=== PATIENT | female | born 1945 | race African-American/Black ===

== ENCOUNTER 2018-09-11 21:57 | Inpatient (IN) | payer OTHER ==
[~2018-09-11] VITALS: Ht 157.5 cm; Wt 39.5 kg
[~2018-09-11 21:57] MED LIST: ACCUNEB SO1.25 MG/1; ACETAMINOPHEN325 M1 PO; ADULT LOW DOSE81 MG PO; APAP500 PO; ARTIFICIAL TEAR15 M1 OPHTHALMIC; ASPIR 8181 MG PO; ATROPINE 1% EYE D11 SUBLING; ATROPINE SUBLING; BISACODYL SUPP10 MG RECTAL; CARVEDILOL12.5 MG PO; CATAPRES0.1 MG PO; COLACE100 MG PO; CRANBERRY450 M1 PO; CYMBALTA20 MG PO; CYMBALTA30 MG PO; FAMOTIDINE10 MG/1 ML PO; FLONASE 0.05%50 MCG NASAL; GERI-LANTA LIQ355 ML PO; GLUCOSE4 GM PO; LANOXIN 0.120.125 M1 PO; LEVEMIR SUBQ; LIORESAL 10 MG10 MG PO; LIPITOR 20 MG T20 M1 PO; LIPITOR10 MG PO; LISINOPRIL10 MG PO; LISINOPRIL20 MG PO; LO-DOSE ASPIRIN81 M1 PO; MAGNESIUM OXID400 MG PO; MOM PO; NORVASC10 MG PO; NORVASC5 MG PO; NOVOLOG100 UNIT/1 SUBQ; ONE DAILY1 EACH PO; PATADAY2.5 ML OPHTHALMIC; PLAVIX 300 MG300 M1 PO; PLAVIX 75 MG TA75 M1 PO; POTASSIUM20 PO; SENNA8.6 MG PO; SINGULAIR 10 MG10 M1 PO; SYSTANE 0.3-0.1 EACH OPHTHALMIC; UNICOMPLEX M TA1 TA1 PO; VERAMYST10 GM NS; VITAMIN D1000 UNI1 PO; VITAMINC500 PO; ZYRTEC-D TABLE1 EAC1 PO; ZYRTEC10 MG PO; [UNRECOGNIZED DRUG - OTHER] SUBLING
[2018-09-11 21:59] VITALS: BP 150/85
--- NOTE | 2018-09-11 22:56 | NUR ---
multiple calls placed to [facility], no answer, per request of Dr Castellon, [place] police will go to the facility to talk with nurse
[2018-09-11 23:57] LABS: CALCIUM 9.8 mg/dL (8.5-10.1); CREATININE 0.9 mg/dL (0.6-1.0); POTASSIUM 5.1 mmol/L (3.5-5.1)
[2018-09-12 03:38] LABS: BASOPHILS 0.7 % (0.0-2.0); HEMATOCRIT 28.8 % (37.0-47.0); HEMOGLOBIN 9.4 gm/dL (12.0-15.0); LYMPHOCYTES 17.1 % (24.0-44.0); MCH 24.6 pg (26.0-34.0); MCHC 32.6 g/dL (28.0-37.0); MCV 75.6 fL (80.0-100.0); PLATELET COUNT 275 thou/uL (150-400); POLYS 76.2 % (36.0-66.0); RDW 17.4 % (10.5-14.5); WBC 11.8 thou/uL (4.0-11.0)
[2018-09-12 04:56] VITALS: BP 128/78
[2018-09-12 05:21] VITALS: BP 118/74
--- NOTE | 2018-09-12 08:02 | NUR ---
PT ARRIVED INTO ROOM 420 AT AROUND 0530. PT IS ALERT TO SELF. VERY DIFFICULT TO UNDERSTAND. PT IS ALSO VERY CONTRACTED WITH R SIDED HEMIPARESIS. WOUNDS IN DIFFERENT PLACES OF BODY. PICTURES TAKEN. WOODRUFF TO D/D. PEG TUBE IN PLACE. HAD A MEDIUM BM- CLEANED. SCDS IN PLACE AND PRAFO BOOTS ON.PT ORIENTED TO STAFF. SCREAMS WITH ANY MOVEMENT. IVF STARTED VIA RIJ.. WOUNDCARE CONSULTED FOR R HIP OSTEO. REPORT GIVEN TO ONCOMING RN TO PROCEED WITH ADMISSION.
[2018-09-12 08:49] VITALS: BP 165/96
[2018-09-12 15:25] VITALS: BP 136/67
--- NOTE | 2018-09-12 15:32 | NUR ---
ADMISSION/ASSESMENT COMPLETED. BP ELEVATED OTHERWISE VSS. NO NOTED SOA. REPOSITIONED NEEDED. PT TEARFUL AFTER EVERY TURN. WOODRUFF TO [place]. BM TODAY. TUBE FEEDING RESUMED. MEDS GIVEN THRU TUBE. PT RESTING IN BED WILL CONT. TO MONITOR.
[2018-09-12 19:30] VITALS: BP 108/49
[2018-09-13 04:00] VITALS: BP 119/61
--- NOTE | 2018-09-13 04:50 | HC ---
[facility] [place] [address] CONSULTATION Name: ABELINO WEBER Room #: 420-P [facility] IN ..#: [id number] Admission: 09/12/18 ������������������ Attend Phys: Sam Holliday MD Discharge: ������������������ Date of : 49 Report #: [id number] THIS REPORT FOR: //name// CC: Sam Holliday Adele Hale DATE OF SERVICE: 09/12/2018 ATTENDING PHYSICIAN: Dr. Holliday. REASON FOR EVALUATION: Left hip deep infection, suspected osteomyelitis. HISTORY OF PRESENT ILLNESS: Chart reviewed, patient examined. This is a 73-year-old woman with extensive medical history, has diabetes mellitus, has been complicated by vasculopathy. She has had previous stroke with right-sided hemiparalysis, does have speech issues as well. It is not clear if this is an additional underlying neurological disease, really unable to get any sort of history. Per record, she apparently was evaluated for left hip pain. MRI suggested findings consistent with osteomyelitis per verbal report. Again not having any additional history. We are trying to obtain the records. She is empirically started on combination therapy with vancomycin, piperacillin and tazobactam. ALLERGIES: LISTED TO POTASSIUM. CURRENT MEDICATIONS: Include enoxaparin, vancomycin, duloxetine, amlodipine, atorvastatin, clopidogrel, carvedilol, Zosyn, insulin lispro and glargine, baclofen, clonidine. PAST MEDICAL HISTORY: Diabetes mellitus, insulin requiring. Hypertension, previous stroke with right-sided hemiparesis 15 years prior. Hyperlipidemia, reflux, depression, dysphagia. She has a severe cardiomyopathy with EF of 10-15%. Behavioral disorder. SOCIAL HISTORY: Unknown. FAMILY HISTORY: Noncontributory. REVIEW OF SYSTEMS: Not obtainable. PHYSICAL EXAMINATION: GENERAL: She appears chronically ill. She is in moderate distress. She is attempting to speak. She does make eye contact, nonsensical. Appears undernourished. VITAL SIGNS: Temperature 98.1, pulse 113, respirations 18, blood pressure 118/74. [facility] [address] [place] [address] CONSULTATION Name: ABELINO WEBER Room #: [address] [place] [address] [place] [facility].#: [id number] Admission: 09/12/18 ������������������ Attend Phys: Sam Holliday MD Discharge: ������������������ Date of : 47 Report #: [id number] SKIN: Warm, dry. HEENT: Normocephalic. Extraocular muscles appear to be intact. NECK: Supple. LUNGS: Diminished breath sounds. HEART: Tachycardic, regular. She has got a systolic murmur. ABDOMEN: Soft. There are no apparent peritoneal signs. It is difficult to evaluate her hip in supine position. GENITOURINARY: Deferred. RECTAL: Deferred. LABORATORY DATA: Sed rate of 75. CBC: White count of 11.8, H and H of 9.4 and 28.8, platelets of 275. CRP of 61.3. Electrolytes: Sodium 134, potassium 5.1, chloride 97, bicarbonate is 32, anion gap of 5, BUN and creatinine 35 and 0.9, estimated GFR of 75. ASSESSMENT: Left hip pain, perhaps on the basis of a deep infection. We will obtain records including MRI. We will continue empiric antimicrobial therapy. Seemingly would be a high risk surgical candidate. Symptomatic pain control. Might consider more comfort type measures if indeed has a deep infection associated with the pelvis or left hip. We will monitor expectantly. I think she is able to do incentive spirometry at this point, certainly at risk for nosocomial related infectious complications. ��������������������������������������������� <ELECTRONICALLY SIGNED> ���������������������������������������� By: Brien Crawford MD ��������������������������������������������� 09/13/18 0450 [id number] Brien Crawford MD /nt
[2018-09-13 05:40] LABS: HEMATOCRIT 24.7 % (37.0-47.0); HEMOGLOBIN 7.9 gm/dL (12.0-15.0); MCH 24.5 pg (26.0-34.0); MCV 76.6 fL (80.0-100.0); RBC 3.23 mil/uL (4.20-5.00); RDW 17.4 % (10.5-14.5)
[2018-09-13 06:05] LABS: CREATININE 0.7 mg/dL (0.6-1.0); POTASSIUM 3.8 mmol/L (3.5-5.1)
[2018-09-13 08:38] VITALS: BP 148/69
--- NOTE | 2018-09-13 14:28 | NUR ---
ASSUMED CARE OF PT AT 0700. ASSESSMENT CHARTED. ALERT TO SELF ONLY. PT MOANING WITH TURNS AND MOVEMENT, PHYSICIAN NOTIFIED. NEW ANXIETY MEDS GIVEN ORDERED. CONTINUOUS TUBE FEEDING RUNNING AT GOAL, NO WATER FLUSHES ORDERED. PHYSICIAN NOTIFIED. NEW ORDER FOR WATER FLUSHES GIVEN ORDERED. PT IN STABLE CONDITION. WILL CONTINUE TO MONITOR.
[2018-09-13 17:31] LABS: URINE BILIRUBIN NEGATIVE (Negative); URINE BLOOD TRACE (Negative); URINE CLARITY CLEAR; URINE COLOR YELLOW; URINE GLUCOSE-RANDOM* NEGATIVE (Negative); URINE KETONES NEGATIVE (Negative); URINE LEUKOCYTES-REFLEX TRACE (Negative); URINE NITRITE-REFLEX NEGATIVE (Negative); URINE PROTEIN (DIPSTICK) 1+ (Negative)
[2018-09-13 17:41] VITALS: BP 137/65
[2018-09-13 17:42] LABS: BACTERIA-REFLEX None Seen /HPF (None Seen); CASTS None Seen /LPF (None Seen); CRYSTALS None Seen /LPF (None Seen); SQUAMOUS 0-3 Few /LPF (0-3); URINE RBC 0-2 Rare /HPF (0-2); URINE WBC-REFLEX 0-5 Rare /HPF (0-5)
[2018-09-13 20:16] VITALS: BP 131/69
--- NOTE | 2018-09-14 04:43 | NUR ---
ASSUMED PT CARE 1900. PT ALERT TO SELF. REASSESSMENT COMPLETE. VSS. IJ DRESSING C/D/I, NO SIGNS OF INFILTRATION. G TUBE DRESSING C/D/I, CONTINOUS TUBE FEEDING AT GOAL RATE. FREQUENT ROUNDING. WILL CONTINUE POC UNTIL EOS.
[2018-09-14 05:54] VITALS: BP 151/76
[2018-09-14 08:42] VITALS: BP 155/92
--- NOTE | 2018-09-14 16:03 | NUR ---
PT ASSESSED AT START OF SHIFT. PT VERY CONTRACTED. TURNED Q2HRS. TOLERATING TUBE FEEDS. CRYING OUT AT TIMES. PAIN MEDS GIVEN REGULARLY. ORAL CARE. DSNGS CHANGED TO WOUNDS. PT TO HAVE MRI TO CHECK FOR OSTEO TOMORROW. FAMILY HERE FOR SHORT VISIT THIS AM.
[2018-09-14 16:37] VITALS: BP 121/56
[2018-09-14 21:00] VITALS: BP 124/66
--- NOTE | 2018-09-15 03:18 | NUR ---
ASSUMED PT CARE 1900. PT ALERT TO SELF. TEARFUL AND ANXIOUS. REASSESSMENT COMPLETE. VSS. FREQUENT ROUNDING AND Q2 TURNS. DRESSING TO RIJ REPLACED. G TUBE DRESSING C/D/I, TUBE FEEDING RUNNING AT GOAL RATE. CONTACT PRECAUTIONS MAINTAINED. WILL CONTINUE POC UNTIL EOS.
[2018-09-15 06:57] VITALS: BP 168/62
[2018-09-15 07:22] VITALS: BP 142/65
--- NOTE | 2018-09-15 09:28 | NUR ---
WOUND CONSULT; ROUNDING WITH DR BOB MATTHEWS AND AKASH ROTO GRAVURE PRESS OPERATOR. WOUNDS IDENTIFIED ARE SACRUM UNSTAGEABLE LEFT HIP STAGE 3 RIGHT HEEL DTI. LEFT LAT ANKLE UNSTAGEABLE, RIGHT HEEL DTI, 1ST MTP JOINT DTI, RIGHT MID FOOT DTI AND THE RIGHT GREATER TROCHANTER UNSTAGEABLE. RECOMMENDATIONS; PAINT THE SACRUM, LEFT LATERAL ANKLE AND RIGHT GREATER TROCHANTER WITH BETADINE DAILY. COVER THE LEFT HIP, RIGHT HEEL, RIGHT MTP JOINT, RIGHT MID FOOT DISCUSSED WITH RN
--- NOTE | 2018-09-15 11:10 | NUR ---
PATIENT CARE WAS ASSUMED AT 0715.PATIENT IS ALERT TO SELF.PATIENT IS TOTAL CARE.Q 2 TURNS.INCONT OF BOWEL AND BLADDER, WOODRUFF IS IN PLACE.PATIENT HAS IV SALINE LOCKED.TUBEFEEDINGS ARE INFUSING CONTINOUSLY WITH 100ML FLUSHES EVERY 6 HOURS, AND SMALL FLUSHES IN BETWEEN MEDICATIONS.PATIENT IS NPO.ORAL CARE WAS DONE.PATIENT HAS WOUND CARE TO BE DONE DAILY.PATIENT MAY HAVE CT SCAN INSTEAD OF MRI DUE TO RECORDS NOT RECIEVED BY [facility].PT HAS CALL LIGHT AT HER SIDE, AND TV ON.
[2018-09-15 14:33] VITALS: BP 135/71
--- NOTE | 2018-09-15 15:21 | NUR ---
PT ADMITTED RELATED TO OSTEOMYELITIS. CM REVIEWED CHART AND SPOKE WITH CARE TEAM. CM CALLED PT'S DPOA HER GDTR CHARANJIT. SHE INDICATED THAT PT HAD BEEN AT [facility] STAFFING ANALYST. SHE INDICATED THAT PT PT HAD USED A WHEELCHAIR TO ASSIT WITH MOBILITY STAFFING ANALYST AND THAT THE FACILITY HAD USED A ANTHONY LIFT TO TRANSFER PT. CHARANJIT INDICATED THAT PT'S SISTER HAD ANOTHER FACILITY IN [place] THAT THEY WERE INTERESTED IN PT GOING TO [place] AND ASKED THAT CM CALL HER. NANCY SPOKE WITH PT'S SISTER OMID AND SHE INDICATED THAT THEY WANTED PT TO GO TO [facility] [place]. CM TO CONTACT FACILITY AND HAVE REFERRAL SENT FOR REVIEW FOR POSSIBLE ADMISSION. CM TO FOLLOW INDICATED WITH DC PLANNING.
--- NOTE | 2018-09-15 17:07 | NUR ---
FAXED REFERRAL TO [facility] IN [place], [place] SPOKE WITH FANY IN ADM SHE RECEIVED REFERRAL AND WILL REVIEW. DCP TO FOLLOW.
[2018-09-15 21:06] VITALS: BP 133/68
--- NOTE | 2018-09-16 04:42 | NUR ---
CARE RESUEMED AT 1900. PT ALERT AND ORIENTED TO SELF, EYE CONTACT MAINTAINED. BED IN LOW POSITION AND FALL PREC IN PLACE. Q2 TURNS DONE DURING SHIFT,FLUSHED TUBE WITH 100ML Q8. PT HAD A SOFT BM, PERINAL CARE PERFORMED. POC DONE AND WILL CONTINUE TO MONITIOR.
[2018-09-16 05:53] VITALS: BP 162/82
[2018-09-16 07:52] VITALS: BP 177/79
--- NOTE | 2018-09-16 14:50 | NUR ---
NANCY SPOKE WITH DEYSI WITH [facility] AND HE ASKED FOR PT'S PIEDAD AND WEIGHT AND WHY THEY WERE INTERESTED IN PT COMING TO [place]. CM CONVEYED THAT INFO. HE INDICATED THAT HIS TEAM IS STILL REVIEWING AND THAT HE WILL REACH OUT TO CM ONCE THEY MAKE A DETERMINATION. CM CALLED AND NOTIFIED PT'S SISTER THAT [facility] IS REVIEWING BUT HADN'T INDICATED IF THEY CAN TAKE PT OR NOT TODAY. CM NOTIFIED SISTER THAT CARE TEAM INDICATED PT IS MEDICALLY STABLE TO [facility] THIS DAY AND THAT PT MIGHT NEED TO RETURN TO [facility] UNTIL SHE IS POSSIBLY ACCEPTED TO OTHER FACILITY AND SHE INDICATED THAT IS NOT POSSIBLE THAT SHE WOULD HAVE SOMEONE COME GET PT BEFORE SHE WOULD HAVE PT RETURN THERE. CM TOLD HER TO CALL [facility]. CM TO FOLLOW INDICATED WITH DC PLANNING.
--- NOTE | 2018-09-16 15:59 | NUR ---
WOUND CONSULT; ROUNDING TODAY WILL DR DENNY AND AKASH SHERIFF ABSTRACT WRITER. NO SIGNIFICANT IMPROVEMENT NOTED TODAY. FAMILY IN THE ROOM. CONTINUE CURRENT PLAN DISCUSSED WITH RN
[2018-09-16 16:18] VITALS: BP 125/54
--- NOTE | 2018-09-16 18:48 | NUR ---
ASSESMENT COMPLETED. VSS. CONFUSED. LETHARGIC, MEDS GIVEN THRU PEG. ST EVALUATED PT. PT OK WITH PUREED. REPOSITIONED. PEG TUBE CHANGED TO GLUCERNA. FOELY TO DD. ENEMA GIVEN X2. PT ABLE TO HAVE LARGE BM. WILL CONT. TO MONITOR.
[2018-09-16 19:58] VITALS: BP 161/76
[2018-09-17 01:30] VITALS: BP 161/76
[2018-09-17 04:54] VITALS: BP 154/85
[2018-09-17 07:44] VITALS: BP 178/85
--- NOTE | 2018-09-17 08:17 | NUR ---
NOC FUR OPERATOR NURSE: PT ALERT TO SELF AND IN PAIN WITH MOVEMENT. PAIN MEDS GIVEN. GLUCERNE FEEDING CONTINOUS VIA PEG. TUBE FLUSHED WITH 100MLS AND AFTER EACH MEDICATION. Q2 TURN ABD LILY MED WITH THICK CLEAR PUREE. FOLLEY IN PLACE AND POC DONE.
[2018-09-17] MEDS ORDERED: AUGMENTIN 500-1 EACH PO (09:29)
--- NOTE | 2018-09-17 13:47 | NUR ---
CM FOLLOWED UP WITH PT'S SISTER THIS DAY. CM INFORMED HER THAT [facility] WILL NOT ACCEPT PT. SHE ASKED THAT REFERRAL BE SENT TO [facility]. CM CALLED AND SPOKE KAITY WILKERSON IN ADMISSIONS THERE AND SHE INDICATED THAT THEY HAVE [employer] MEDICAID BEDS OPEN. DC MATERIALS BUYER TO FAX REFERRAL OVER. CM TO FOLLOW INDICATED WITH DC PLANNING.
--- NOTE | 2018-09-17 15:11 | NUR ---
FAXED REFERRAL TO [facility] SPOKE WITH RHEA IN ADM SHE RECEIVED REFERRAL AND WILL REVIEW. DCP TO FOLLOW.
--- NOTE | 2018-09-17 15:37 | NUR ---
CM CALLED [facility] AND ASKED IF THEY HAD REVIEWED REFERRAL. RHEA INDICATED THEY WERE STILL REVIEWING IT. CM CALLED PT'S GDTR/DPOA CHARANJIT TSAI INDICATED THAT CM HAD REACHED OUT TO PT'S SISTER SHE HAD INDICATED CM COULD AND THAT REFERRALS HAD BEEN SENT TO A FACILITY IN [place] HOW ISN'T ABLE TO ACCEPT AND THAT WE ARE AWAITING RESPONSE FROM ANOTHER. CM INDICATED THAT THEY HAD CONSULTED SURGERY AND VASCULAR SPECIALIST TO ASSESS PT. CM INDICATED THAT SURGEON INDICATED PT PT ISN'T A SURGICAL CANDIDATE DUE TO HER DEBILITY AND ADVANCED AGE. GDTR ASKED WHAT THEY WERE ASSESSING FOR POSSIBLE SURGER CM INDICATED INFECTION OF HER HIP. GDTR ASKED IF INFECTION WOULD HEAL WITH ABX. CM INDICATED CM WOULD HAVE TO ASK CARE TEAM. GDTR INDICATED SHE WOULD APPRECIATE CALL WITH EXPLANIATION OF TREATMENT GOALS AND NEXT STEPS. CM INDICATED THAT IF THERE WASN'T ANOTHER ACCEPTING FACILITY TOMORROW PT WOULD NEED TO RETURN TO [facility] AND SEEK ALTERNATE PLACEMENT THERE. CM TO FOLLOW INDICATED WITH DC PLANNING.
[2018-09-17 17:01] VITALS: BP 127/67
--- NOTE | 2018-09-17 19:00 | NUR ---
PT ASSESSED AT START OF SHIFT. CONSULT FOR SURGERY TO DO DEBRIDEMENT OF HIP BUT DR. FRANCIS STATED PT WOULD NOT SURVIVE THE SURGERY. ELECTROMECHANICAL EQUIPMENT TESTER CALLED DPOA TO INFORM HER AND SHE IS WANTING TO TALK W/ DR SY PLAN. PT MORE COMFORTABLE TODAY-LESS CRYING. TURNED Q2HRS. HAD VIDEO SWALLOW PER SPEECH AND PASSED SHOWING NO ASPIRATION. PT LOVE COKE AND WAS OFFERED SIPS SEVERAL TIMES. ATE VERY LITTLE OF PUREED DIET. TOLERATING TUBE FEEDING WELL. ISOLATION DC'D PER RECORD CENTER SPECIALIST
[2018-09-17 19:44] VITALS: BP 120/72
--- NOTE | 2018-09-17 23:51 | NUR ---
CARE ASSUME. PT ASSESSED AT START OF SHIFT NOW ON PUREED DIET AND GLUCERNA GOING 1.2 @ 50ML GOING THROUGH PEG TUBE. LILY MED ADMINISTRATION AND FLUSHED TUBE. Q2 TURNS DONE. POC IN PLACE AND WILL CONTINUE TO MONITOR.
[2018-09-18 05:47] VITALS: BP 125/81
[2018-09-18 08:19] VITALS: BP 156/84
[2018-09-18 10:00] VITALS: BP 156/84
--- NOTE | 2018-09-18 11:32 | NUR ---
Recommend increasing Glucerna 1.2 to 60 ml/hr in order to meet nutrition needs.
--- NOTE | 2018-09-18 14:38 | NUR ---
WOUND CARE FOLLOW UP; ROUNING WITH DR BOB MATTHEWS AND HANH ISAAC BSN. NO CHANGES ARE NECCESSARY AT THIS TIME. WOUNDS ARE STABLE WITH NO OBVIOUS S/S OF INFECTION. RECOMMENDATION; NO CHANGES TO PLAN OF CARE DISCUSSED WITH RN
--- NOTE | 2018-09-18 15:22 | NUR ---
CM HEARD BACK FROM DEYSI AT [facility] AND HE INDICATED THEY AREN'T ABLE TO ACCEPT PT EITHER. CM CALLED PT'S GDTR/DPOA CHARANJIT AND INDICATED THAT ABOVE. SHE STATED THAT SHE WAS AGREEABLE WITH PT RETURNING TO [facility] THIS DAY. ORDERS ARE COMPLETED THEY WILL BE FAXED TO FACILITY. TRANSPROT WILL BE ARRANGED VIA STRETCHER. REPROT TO BE CALLED TO [facility] AT .
--- NOTE | 2018-09-18 16:07 | NUR ---
PT DISCHARGING TODAY BACK TO [facility] FAXED DC ORDERS/SUMMARY TO FACILITY SPOKE WITH MIAH IN ADM SHE RECEIVED DC ORDERS. DCP ARRANGED TRANSPORTATION VIA STRETCHER/AMBULANCE THROUGH [facility] TRIP #[id number] THEY WILL PICK PT UP BETWEEN [phone]. LEFT MSG WITH PT'S MELANIA HUBBARD) OF DC AND TIME OF TRANSPORT. UNIT NOTIFIED AND CHART COPY PER US. RN TO CALL REPORT TO [phone].
--- NOTE | 2018-09-18 16:42 | NUR ---
PT ASSESSED AT START OF SHIFT. VERY CALM AND QUIET. CRIES OUT IF REPOSITIONED APPEARS TO BE AFRAID OF WHAT'S HAPPENING. REASSURANCE GIVEN. TOLERATING TUBE FEEDS. DECLINED SIPS OF COKE WHEN OFFERED. PRIMARY CARE CALLED FAMILY TO DISCUSS PT CONDITION AND PLAN OF CARE. PT RETURNING TO [facility] AT THIS TIME PER STRETCHER. RT IJ CENTRAL LINE DC'D PER REVERSE TRENDELENBURG AND PRESSURE HELD FOR 5MIN. NO BLEEDING AT SITE.
--- NOTE | 2018-09-18 17:51 | NUR ---
LOW AIR LOSS PUMP REMOVED FROM MATTRESS AND PLACED IN UTILITY ROOM FOR PICKUP FROM [facility].
--- NOTE | 2018-09-19 11:13 | HC ---
[facility] [place] [address] CONSULTATION Name: ABELINO WEBER Leida Room #: 420-P [facility] IN ..#: [id number] Admission: 09/12/18 ������������������ Attend Phys: Olga Ross Discharge: 09/18/18 ������������������ Date of : 47 Report #: [id number] THIS REPORT FOR: //name// CC: Olga Ross Adele Hale DATE OF SERVICE: 09/15/2018 CHIEF COMPLAINT: Multiple pressure ulcerations. HISTORY OF PRESENT ILLNESS: This is a 73-year-old female patient who resides at [facility]. She has developed pressure ulcers on multiple surfaces as well as lower extremities. I have been asked to see her with regard to wound care. The patient has a past history of diabetes, hypertension, hyperlipidemia, cerebrovascular accident and severe cardiomyopathy. She has a significant expressive aphasia and is not able to make any comment about her current condition. PAST MEDICAL HISTORY: Positive for type 2 diabetes mellitus, hypertension, cerebrovascular accident with right hemiparesis and expressive aphasia, hyperlipidemia, reflux esophagitis, depression, anxiety, severe cardiomyopathy with an ejection fraction of 10-15%. SOCIAL HISTORY: Negative for alcohol or tobacco use. FAMILY HISTORY: Unknown. REVIEW OF SYSTEMS: Not obtainable due to the patient's condition. ALLERGIES: Listed as potassium. MEDICATIONS: Include aspirin, atropine, Dulcolax, Zestril, mag ox, Plavix, Lanoxin, Levemir, Singulair, NovoLog, Cymbalta, Pataday, Systane, vitamin C, vitamin D, cranberry, Flonase, Coreg, Lioresal, Lipitor, Colace, Catapres, senna, famotidine, K-Dur, Norvasc. PHYSICAL EXAMINATION: VITAL SIGNS: Include temperature 98.2, pulse 110, respiratory rate 21, blood pressure 142/65. GENERAL: This is a chronically ill-appearing female patient who appears to be in no obvious distress. She does moan or sometimes cry when moved. HEENT: Head is normocephalic. Nose and throat are clear. NECK: Supple. LUNGS: Diminished. HEART: Regular rhythm. ABDOMEN: Soft. Feeding tube noted. [facility] [address] [place] [address] CONSULTATION Name: ABELINO WEBER Room #: 420-P [facility] IN .R.#: [id number] Admission: 09/12/18 ������������������ Attend Phys: Olga Ross Discharge: 09/18/18 ������������������ Date of : 49 Report #: [id number] EXTREMITIES: Examination of the pelvic region demonstrates that she has what appears to be a large area of eschar that is mostly dry and stable overlying the right greater trochanter. She has what appears to be a mix of some granulation tissue and some residual eschar in the sacral region as well as the left hip. The ulcerations here are certainly less significant than that on the right hip. EXTREMITIES: Examination of lower extremities demonstrates a deep tissue injury to her left heel and unstageable pressure ulcer on her left lateral ankle, deep tissue injury to the right heel, deep tissue injury to the right first MTP and deep tissue injury to the right mid foot. Outside studies demonstrate arterial Doppler with moderate to high-grade stenosis of the common femoral artery seen with elevated velocity and near occlusion of the superficial femoral artery. MRI shows probable osteomyelitis of the greater trochanter. CLINICAL IMPRESSION: 1. Stage 3 pressure ulcer to the left greater trochanter, unstageable pressure ulcer to the right greater trochanter, unstageable pressure ulcer to the sacrum and deep tissue injuries to the left heel, right heel, right first MTP, right mid foot. 2. Unstageable pressure ulcer to the left lateral ankle. 3. Moderate protein-calorie malnutrition. 4. History of cerebrovascular accident with right-sided weakness and expressive aphasia. 5. Severe flexion contractures involving the hips and knees bilaterally. 6. Diabetes mellitus with hyperglycemia. 7. Cardiomyopathy. RECOMMENDATIONS: At this point in time, we will review arterial Doppler here and MRI of the pelvis. Recommend bordered foam to the bilateral hips and sacrum, left medial knee and bilateral heels. She will need low air loss mattress with q. 2 hours turning and positioning, PRAFO boots. Recommend Betadine to the areas of the right ankle as I think these are likely to be nonhealing with her significant vascular disease. Unfortunately, there are very limited options here. There are pressure ulcers on alternating surfaces and severe flexion contractures. The contractures, I believe will likely limit the options for any sort of revascularization. Her cardiomyopathy may limit our ability to perform any sort of surgical interventions. We will continue to follow while here. ��������������������������������������������� <ELECTRONICALLY SIGNED> ���������������������������������������� By: Inder Holder MD ��������������������������������������������� 09/19/18 1113 [id number] Inder Holder MD /nt
== END 2018-09-18 17:07 | DRG 592 ==
LOC: ER 21:57 → 4E 09-12 04:01 → EROBS 09-12 04:01 → 4E 09-12 05:46
PROVIDERS: Emergency Medicine; Nurse Practitioner Family; ADMIT Hospitalist
PROC: 02H633Z Insertion of Infusion Device into Right Atrium, Percutaneous Approach (ICD-10-PCS; principal; 2018-09-11)
DX: L89.223 Pressure ulcer of left hip, stage 3 (principal); E43 Unspecified severe protein-calorie malnutrition; I42.9 Cardiomyopathy, unspecified; I69.351 Hemiplegia and hemiparesis following cerebral infarction affecting right dominant side; Z68.1 Body mass index [BMI] 19.9 or less, adult; I10 Essential (primary) hypertension; E11.51 Type 2 diabetes mellitus with diabetic peripheral angiopathy without gangrene; E78.5 Hyperlipidemia, unspecified; F32.9 Major depressive disorder, single episode, unspecified; L89.520 Pressure ulcer of left ankle, unstageable; L89.150 Pressure ulcer of sacral region, unstageable; L89.629 Pressure ulcer of left heel, unspecified stage; L89.619 Pressure ulcer of right heel, unspecified stage; E11.65 Type 2 diabetes mellitus with hyperglycemia; K21.9 Gastro-esophageal reflux disease without esophagitis; F41.9 Anxiety disorder, unspecified; F03.90 Unspecified dementia, unspecified severity, without behavioral disturbance, psychotic disturbance, mood disturbance, and anxiety; K59.00 Constipation, unspecified; L89.210 Pressure ulcer of right hip, unstageable; I25.2 Old myocardial infarction; Z87.01 Personal history of pneumonia (recurrent); Z79.82 Long term (current) use of aspirin; Z79.4 Long term (current) use of insulin; Z79.899 Other long term (current) drug therapy; Z88.8 Allergy status to other drugs, medicaments and biological substances; Z87.891 Personal history of nicotine dependence
CPT/HCPCS: 10783